=== PATIENT | female | born 2000 | race Two or more races ===

== ENCOUNTER 2022-04-04 21:12 | Emergency (ER) | payer OTHER ==
[~2022-04-04] VITALS: Ht 162.6 cm; Wt 63.5 kg
--- NOTE | 2022-04-04 21:25 | NUR ---
[id number] FOR LAC TO LEFT SIDE OF FOREHEAD. ALSO C/O R ELBOW PAIN S/P ELBOWING GLASS WINDOW. TDAP UTD. -KO +ETOH. AMS WNL A/OX3. TOLERATING R/A WELL WITH NO SOB. [employer] AT PT'S BEDSIDE
--- NOTE | 2022-04-04 21:30 | NUR ---
PT PLACED ON 5150 HOLD FOR DTS/SI. SAFETY MEASURES IN PLACE: SITTER AT PT'S BEDSIDE
[2022-04-04] MEDS ORDERED: BACI/NEOM/POLY B OINT PKT 1 UDPKT PACKET ONE (21:55)
[2022-04-04] MEDS ORDERED: LIDOCAINE MPF 1%-EPI 1:200,000 30 ML VIAL IJ ONE (21:55)
[2022-04-04] MEDS ORDERED: LIDOCAINE HCL/PF 1% 30 ML VIAL TP ONE (22:00)
[2022-04-04] MEDS ORDERED: BACI/NEOM/POLY B OINT PKT 1 UDPKT PACKET TP ONE (22:00)
--- NOTE | 2022-04-04 22:15 | NUR ---
PT RETURNED TO ER BED [address]
--- NOTE | 2022-04-04 23:20 | NUR ---
PRODUCTION SUPERVISOR OFF SHIFT AT PT'S BEDSIDE FOR LAC WOUND CARE.
[2022-04-04] MEDS ORDERED: AMOX-430 PO (23:48)
--- NOTE | 2022-04-05 00:17 | NUR ---
MOLD RUNNER AT PT'S BEDSIDE. COVID ANTIGEN SWAB COLLECTED AND SENT TO LAB.
--- NOTE | 2022-04-05 00:26 | NUR ---
URINE COLLECTED AND SENT TO LAB
[2022-04-05 00:38] LABS: BASOPHILS % (AUTO) 0.3 % (0.0-2.0); EOSINOPHILS % (AUTO) 0.5 % (0.0-6.0); HEMATOCRIT 36 % (33-45); HEMOGLOBIN 11.8 g/dL (11.5-14.8); LYMPHOCYTES # (AUTO) 2.3 K/uL (0.8-4.8); LYMPHOCYTES % (AUTO) 20.6 % (20.0-44.0); MEAN CORPUSCULAR HGB CONC 33 g/dl (31.0-36.0); MEAN CORPUSCULAR VOLUME 85 fL (82-100); MONOCYTES # (AUTO) 0.9 K/uL (0.1-1.30); MONOCYTES % (AUTO) 8.6 % (2.0-12.0); NEUTROPHILS # (AUTO) 7.7 K/uL (1.8-8.9); PLATELET COUNT (AUTO) 258 K/uL (150-450); RED BLOOD CELL COUNT(AUTO) 4.24 MIL/uL (4.0-5.2)
[2022-04-05 00:45] LABS: BILIRUBIN,URINE NEGATIVE (NEGATIVE); COLOR,URINE YELLOW (YELLOW); LEUKOCYTE ESTERASE ,URINE NEGATIVE (NEGATIVE); NITRITE, URINE NEGATIVE (NEGATIVE); PH,URINE 8.5 (5.0-8.0); PROTEIN,URINE NEGATIVE (NEGATIVE); UGLUCOSE NEGATIVE (NEGATIVE); UROBILINOGEN,URINE 0.2 EU/dL (0.2)
[2022-04-05 01:10] LABS: CALCIUM, SERUM 8.3 mg/dL (8.5-10.1); CARBON DIOXIDE 27 mmol/L (21-32); CHLORIDE 105 mmol/L (98-107); CREATININE 0.9 mg/dL (0.6-1.3); GLUCOSE 102 mg/dL (74-106); POTASSIUM 3.8 mmol/L (3.5-5.1); SODIUM SERUM 142 mmol/L (136-145); UREA NITROGEN, BLOOD 7 mg/dL (7-18)
--- NOTE | 2022-04-05 01:12 | NUR ---
CALLED LAB F/U WITH COVID ANTIGEN RESULTS; STILL PENDING
[2022-04-05 01:16] LABS: ALANINE AMINOTRANSFERASE 15 U/L (12-78); ALBUMIN 3.5 g/dL (3.4-5.0); ALCOHOL, BLOOD < 3 mg/dL (0-0); ALKALINE PHOSPHATASE 63 U/L (46-116); ASPARTATE AMINOTRANSFERASE 24 U/L (15-37); BILIRUBIN,TOTAL 0.1 mg/dL (0.2-1.0); TOTAL PROTEIN, SERUM 7.7 g/dL (6.4-8.2)
[2022-04-05 01:18] LABS: ACETAMINOPHEN 0 ug/ml (10-30)
--- NOTE | 2022-04-05 01:31 | NUR ---
CALLED [facility] CRISIS TEAM TO EVALUATE PT
--- NOTE | 2022-04-05 03:35 | NUR ---
[employer] TEAM AT PT'S BEDSIDE FOR INGE
[2022-04-05 03:47] VITALS: BP 113/74
--- NOTE | 2022-04-05 03:47 | NUR ---
Patient discharged to home in stable condition. Written and verbal after care instructions given. Patient verbalizes understanding of instruction. PT ambulatory with a steady gait. PT picked up by aunt.
[2022-04-05 07:11] LABS: BACTERIA,URINE Few /HPF (None Seen); SQUAMOUS EPITHELIAL CELL,UR Few /HPF (None Seen); URINE AMORPHOUS URATE Moderate /HPF (None Seen); WBC,URINE NONE SEEN /HPF (0-3)
== END 2022-04-05 03:48 | disposition home or self-care (01) ==
LOC: ER 21:19
DX: S01.81XA Laceration without foreign body of other part of head, initial encounter (principal); X78.0XXA Intentional self-harm by sharp glass, initial encounter; Y92.019 Unspecified place in single-family (private) house as the place of occurrence of the external cause; F41.0 Panic disorder [episodic paroxysmal anxiety]; S70.372A Other superficial bite of left thigh, initial encounter; W54.0XXA Bitten by dog, initial encounter; Z20.822 Contact with and (suspected) exposure to COVID-19
CPT/HCPCS: 12011; 36415; 70486; 80048; 80076; 80143; 80307; 80320; 81001; 85025; 87426; 99285; C9803; J3490 ×2; G0480

== ENCOUNTER 2022-05-10 21:43 | Emergency (ER) | payer OTHER ==
[~2022-05-10] VITALS: Ht 167.6 cm; Wt 61.2 kg
[~2022-05-10 21:43] MED LIST: AMOX-430 PO
[2022-05-10 21:46] VITALS: BP 124/65
--- NOTE | 2022-05-10 21:52 | NUR ---
Patient discharged to home in stable condition. Written and verbal after care instructions given. Patient verbalizes understanding of instruction.
== END 2022-05-10 21:53 | disposition home or self-care (01) ==
LOC: ER 21:45
DX: Z48.02 Encounter for removal of sutures (principal); Z60.2 Problems related to living alone; Z79.899 Other long term (current) drug therapy